=== PATIENT | male | born 1955 | race African-American/Black ===

== ENCOUNTER 2020-07-15 12:22 | Emergency (ER) | payer MEDICAID ==
[~2020-07-15] VITALS: Ht 175.3 cm; Wt 87.0 kg
[2020-07-15 12:28] VITALS: BP 162/89
== END 2020-07-15 12:43 | disposition left against medical advice (07) ==
LOC: ER 12:22
DX: S61.412D Laceration without foreign body of left hand, subsequent encounter (principal); Z53.21 Procedure and treatment not carried out due to patient leaving prior to being seen by health care provider; X58.XXXD Exposure to other specified factors, subsequent encounter

== ENCOUNTER 2021-03-05 23:07 | Emergency (ER) | payer MEDICAID, OTHER ==
[~2021-03-05] VITALS: Ht 175.3 cm; Wt 91.0 kg
[2021-03-06] MEDS ORDERED: IBUPROFEN 600MG TABLET PO STA (01:07)
[2021-03-06] MEDS ORDERED: BACITRACIN ZINC OINT UDPKT TOP ONE (02:45)
[2021-03-06] MEDS ORDERED: LIDOCAINE HCL/PF 1% 10 MG/ML 5ML VIAL IJ ONE (02:45)
[2021-03-06 03:56] VITALS: BP 122/69
[2021-03-06] MEDS ORDERED: IBUP-2029 PO (04:09)
== END 2021-03-06 05:31 | disposition home or self-care (01) ==
LOC: ER 23:07
DX: S50.8 Other superficial injuries of forearm (principal); V43.92XS Unspecified car occupant injured in collision with other type car in traffic accident, sequela
CPT/HCPCS: 73090; 99283; J3490

== ENCOUNTER 2021-03-15 09:55 | Emergency (ER) | payer OTHER ==
[~2021-03-15] VITALS: Ht 175.3 cm; Wt 91.0 kg
[~2021-03-15 09:55] MED LIST: IBUP-2029 PO
[2021-03-15 10:30] VITALS: BP 150/78
== END 2021-03-15 10:30 | disposition home or self-care (01) ==
LOC: ER 10:28
DX: Z48.02 Encounter for removal of sutures (principal)
CPT/HCPCS: 99281; Z7610